=== PATIENT | male | born 1985 | race American Indian/Alaskan Native ===

== ENCOUNTER 2019-02-26 16:51 | Emergency (ER) | payer SELFPAY ==
[2019-02-26] MEDS ORDERED: LIDOCAINE (1%) 10 MG/1 ML VIAL 20 ML MDV INFILTRATI ONE (17:27)
[2019-02-26 17:37] LABS: Basophils # (Auto) 0.1 K/mm3 (0.0-0.1); Basophils % (Auto) 0.8 % (0.0-1.8); Eosinophils % (Auto) 0.5 % (0.0-4.3); Hematocrit 49.1 % (35.5-45.6); Hemoglobin 16.5 gm/dl (11.8-15.2); Lymphocytes # (Auto) 4.5 K/mm3 (1.2-5.4); Lymphocytes % (Auto) 45.5 % (13.4-35.0); Mean Corpuscular HGB Conc 34 % (32-34); Mean Corpuscular Volume 87 fl (84-94); Monocytes # (Auto) 0.4 K/mm3 (0.0-0.8); Monocytes % (Auto) 3.6 % (0.0-7.3); Platelet Count 509 K/mm3 (140-440); Red Blood Count 5.65 M/mm3 (3.65-5.03); Red Cell Distribution Width 13.7 % (13.2-15.2)
[2019-02-26 17:57] LABS: BUN/Creatinine Ratio 10; Blood Urea Nitrogen 6 mg/dL (9-20); Hemolysis Index 19
[2019-02-26 18:11] LABS: Bilirubin,Urine NEG (Negative); Blood,Urine NEG (Negative); Color,Urine Straw (Yellow); Mucus,Urine FEW /HPF; Protein,Urine <15 mg/dL mg/dL (Negative); Urobilinogen,Urine < 2.0 mg/dL (<2.0); WBC,Urine < 1.0 /HPF (0.0-6.0)
[2019-02-26 18:15] LABS: Amphetamine Screen,Urine PRESUMPTIVE NEGATIVE; Benzodiazepines Screen,Urine PRESUMPTIVE NEGATIVE; Cannabinoid Screen,Urine PRESUMPTIVE NEGATIVE; Cocaine Screen,Urine PRESUMPTIVE NEGATIVE; Methadone Screen,Urine PRESUMPTIVE NEGATIVE; Opiate Screen,Urine PRESUMPTIVE NEGATIVE
[2019-02-26] MEDS ORDERED: THIAMINE 100 MG, FOLIC ACID 1 MG, MULTIPLE VITAMIN INJ, ADULT 10 ML in SODIUM CHLORIDE ... IV ONE (19:30)
[2019-02-26] MEDS ORDERED: TETANUS,DIPH,PERTUSS(ACELL) VACCINE 0.5 ML SYRINGE IM ONE (19:37)
--- NOTE | 2019-02-26 19:37 | Emergency Department Report ---
HPI - General Chief Complaint: Psych Time Seen by Provider: 02/26/19 17:15 - HPI HPI: 33-year-old male presents to the emergency department with suicidal ideations and attempt. The patient cut his left wrist with a knife or blade causing a 4-5 inch linear laceration. The patient does admit to alcohol use and appears acutely intoxicated. He apparently has a history of suicidal ideations in the past but unknown if there has ever been an attempt. He does have a history of depression and anxiety. He also has a medical history of HIV. Patient is a t obacco smoker but denies any illicit drug use. Apparently the patient cut himself while at his mother's house but was found in a parking lot. Bleeding is controlled upon arrival. Patient says that his last tetanus shot was about 5 years ago. ED Past Medical Hx - Past Medical History Previous Medical History?: Yes Hx HIV: Yes Additional medical history: Lymphoma. Depression. Anxiety - Social History Smoking Status: Current Every Day Smoker Substance Use Type: Alcohol, Marijuana ED Review of Systems ROS: Stated complaint: SI Other details as noted in HPI Comment: All other systems reviewed and negative Constitutional: denies: chills, fever Eyes: denies: eye pain, vision change ENT: denies: ear pain, throat pain Respiratory: denies: cough, shortness of breath Cardiovascular: denies: chest pain, palpitations Gastrointestinal: denies: abdominal pain, vomiting Genitourinary: denies: dysuria, discharge Musculoskeletal: denies: back pain, arthralgia Skin: other (left wrist laceration). denies: rash Psychiatric: depression, suicidal thoughts. denies: homicidal thoughts Physical Exam - Physical Exam Vital Signs: Vital Signs 02/26/19 17:07 Temperature 98.1 F Pulse Rate 98 H Respiratory 16 Rate Blood Pressure 127/92 O2 Sat by Pulse 98 Oximetry Physical Exam: GENERAL: The patient is well-developed well-nourished. HEENT: Normocephalic. Atraumatic. Patient has moist mucous membranes. EYES: Extraocular motions are intact. NECK: Supple. Trachea is midline. CHEST/LUNGS: Clear to auscultation. There is no respiratory distress noted. HEART/CARDIOVASCULAR: Regular. There is no tachycardia. There is no murmur. ABDOMEN: Abdomen is soft, nontender. Patient has normal bowel sounds. There is no abdominal distention. SKIN: Skin is warm and dry. There is a 4 inch linear laceration to the volar left wrist and distal forearm. It is superficial. There is a gap of about 1.5 cm between the edges. Bleeding is controlled. NEURO: The patient is awake, alert, and oriented but the patient appears acutely intoxicated. The patient is cooperative. The patient has no focal neurologic deficits. Normal speech. Radial pulse +2 over 4 and capillary refill less than 2 seconds to the affected left upper extremity. MUSCULOSKELETAL: There is no tenderness or deformity. There is no limitation range of motion. ED Course Vital Signs 02/26/19 17:07 Temperature 98.1 F Pulse Rate 98 H Respiratory 16 Rate Blood Pressure 127/92 O2 Sat by Pulse 98 Oximetry - Laceration /Wound Repair Left Volar Wrist Wound Location: upper extremity (left volar wrist) Wound Length (cm): 10 Wound's Depth, Shape: superficial, linear Wound Explored: no foreign body removed Anesthesia: 1% Lidocaine Volume Anesthetic (ccs): 5 Wound Repaired With: sutures Suture Size/Type: 5:0, 4:0, proline Number of Sutures: 11 Layer Closure?: No Sterile Dressing Applied?: Yes ED Medical Decision Making - Lab Data Result diagrams: 02/26/19 17:25 02/26/19 17:25 - Medical Decision Making Patient presents with suicidal ideations and a possible attempt. The patient cut his left wrist with a knife or bleed causing a 4 inch laceration. He is neurovascularly intact. The laceration was repaired. Labs are unremarkable except for a blood alcohol level of 0.29. IV fluid resuscitation and banana bag have been ordered. Patient was given some antibiotics for the wound. Tetanus vaccination updated. The patient has been made a 1013 secondary to the suicidal ideations and attempt. He was seen by the psychiatric behavioral psychologist who agrees with this plan. Once the patient's blood alcohol level has come down slightly he will be considered medically cleared for psychiatric placement. - Differential Diagnosis depression, bipolar disorder, schizoaffective, substance abuse Critical Care Time: No Critical care attestation.: If time is entered above; I have spent that time in minutes in the direct care of this critically ill patient, excluding procedure time. ED Disposition Clinical Impression: Suicidal ideations, Suicide attempt by cutting of wrist Depression Qualifiers: Depression Type: other depression Qualified Code(s): F32.89 - Other specified depressive episodes Laceration of left wrist Qualifiers: Encounter type: initial encounter Qualified Code(s): S61.512A - Laceration without foreign body of left wrist, initial encounter Disposition: [id number]/[id number] PSY HOSP/PSY UNIT Is pt being admited?: No Condition: Stable Time of Disposition: 23:28
[2019-02-26] MEDS ORDERED: ZIPRASIDONE MESYLATE 20 MG VIAL IM ONE (20:00)
[2019-02-27] MEDS ORDERED: IBUPROFEN 800 MG TAB PO ONE ×2 (08:10→14:34)
[2019-02-27] MEDS ORDERED: hydrOXYzine HCL 25 MG TAB PO ONE (16:09)
[2019-02-27] MEDS ORDERED: NICOTINE 21 MG/24 HR PATCH TD ONE (17:17)
[2019-02-27] MEDS ORDERED: MELATONIN 5 MG TAB PO PRN (18:41)
[2019-02-27] MEDS ORDERED: ACETAMINOPHEN 500 MG TAB PO ONE (20:04)
[2019-02-28] MEDS ORDERED: ALPRAZolam 1 MG TAB PO ONE (02:26)
[2019-02-28] MEDS ORDERED: IBUPROFEN 600 MG TAB PO ONE ×2 (07:34→07:35)
[2019-02-28] MEDS ORDERED: LORazepam 1 MG TAB ONE (09:50)
[2019-02-28] MEDS ORDERED: LORazepam 1 MG TAB PO ONE (09:50)
--- NOTE | 2019-02-28 13:45 | Consultation ---
History of Present Illness - Reason for Consult Consult date: 02/28/19 Reason for consult: assess and manage mental health - Chief Complaint Chief complaint: Anxiety, Depression, SI w/attempt, flashbacks - History of Present Psychiatric Illness Wilber Jim is a 33 year old male patient who says he's here for "cutting his wrist with a knife. " He says "I was drinking. I was losing my and children." The patient is a/o x3. He is polite, cooperative. His speech is clear and normal tone. He makes good eye contact. He is dressed appropriately. Mr. Jim says he is "depressed and anxious." He states, "I was suicidal, but I'm not sure now." He says he "has these thoughts in his head, and I talk to myself out loud." He says "I see things, flashbacks." He states "they are not hallucinations, but in my head." He says he's "been to longterm and seen a lot of bad stuff. I have flashbacks about it." He says he has "intrusive thoughts." He says he gets "very anxious and was taking xanax 1mg three times a day from primary." He says he "hasn't had it in five or 6 days." The patient is also asking about his "pain medication for his back condition." The patient says he's "shaky" and feels like "withdrawals from his pain med." Mr. Jim says "he can't sleep," because he says "he sees bad stuff happening." He says when he talks out loud it's him "trying to get himself straight." He says "I ask myself, "why you do that. You're so stupid." He denies ever seeing a psychiatrist, but says his primary treats his anxiety and depression. He says he has never attempted suicide in the past. The patient states he has did "heroin, meth and marijuana in the past." He also says he uses alcohol. He says he "doesn't drink every day." He says he smokes cigarets, a pack per day. The patient says he "has no fear of going home. But I gotta fix what's going on." Past Psychiatric History Diagnoses: Depression, Anxiety Past Suicide attempts: Denies Past psych hospitalizations: Denies Medications tried: Zoloft, celexa "did not work" Outpatient treatment: by primary Family Psychiatric History None reported or documented SOCIAL HISTORY Marital Status: Living Arrangements: with Employment Status: Employed Access to guns/weapons: Denies Education: 12th grade History of Abuse: Heroine, cocaine, TCH, alcohol, nicotine Legal History: Been to longterm REVIEW OF SYSTEMS Constitutional: Negative for weight loss ENT: Negative for stridor Respiratory: Negative for cough All other systems reviewed and are negative PAST MEDICAL HISTORY: HIV MSE Appearance: In bed. Appropriate clothing. Good eye contact. Behavior: cooperative, polite Mood: "depressed, anxious" Affect: consisted with mood Thought Process: Goal directed Speech: Normal tone and pace Thought Content Harmfulness: "I was. not sure now" cut wrist Hallucinations: patient denies Delusions: none elicited Consciousness: Alert Cognition/Memory: Good Insight/Judgment: Fair Assessment: Substance-Induced Mood Disorder Major Depressive Disorder, Severe, w/o Psychotic Features PTSD Treatment Plan Continue 1013 Medications -Folic Acid 1mg po daily -CIWA protocol -Nicotine pact 21mg daily -Doxepin 10mg po qhs -Xanax 0.5 po BID -Melatonin 5mg po qhs -Risperidone 0.5mg po BID -Lexapro 5mg po daily -Geodon 20mg IM q4h prn Sitter: Defer to primary Medical: Per Primary Disposition: The patient meets the requirements for acute inpatient psychiatric treatment. Please transfer to acute psych facility once medically stable. The patient explained the medications, benefits and side effects, and treatment plan. He verbalizes understanding and agreement of the treatment plan. Please call me with any questions or concerns. Thank you for this consult. Medications and Allergies Allergies Allergy/AdvReac Type Severity Reaction Status Date / Time No Known Allergies Allergy Unverified 02/26/19 17:11 Home Medications Medication Instructions Recorded Confirmed Last Taken Type Bictegrav/Emtricit/Tenofov Ala 1 tab PO QDAY 02/28/19 02/28/19 Unknown History [Biktarvy 50-200-25 mg (Nf)] Active Meds: Active Medications Melatonin (Melatonin) 10 mg PO QHS PRN PRN Reason: Sleep Last Admin: 02/27/19 20:24 Dose: 10 mg Documented by: Mental Status Exam - Vital signs Last Vital Signs Temp 97.6 F 02/28/19 07:00 Pulse 63 02/28/19 07:00 Resp 18 02/28/19 07:00 BP 139/92 02/28/19 07:00 Pulse Ox 96 02/28/19 07:00 Results Result Diagrams: 02/26/19 17:25 02/26/19 17:25 All other labs normal.
[2019-02-28] MEDS ORDERED: MELATONIN 5 MG TAB PO PRN (13:55)
[2019-02-28] MEDS ORDERED: chlordiazePOXIDE 25 MG CAP PO PRN ×2 (13:59)
[2019-02-28] MEDS ORDERED: ZIPRASIDONE MESYLATE 20 MG VIAL IM PRN (14:12)
[2019-02-28] MEDS ORDERED: risperiDONE 0.25 MG TAB PO SCH (16:00)
[2019-02-28] MEDS ORDERED: FOLIC ACID 1 MG TAB PO SCH (16:00)
[2019-02-28] MEDS ORDERED: ESCITALOPRAM 10 MG TAB PO SCH (16:00)
[2019-02-28] MEDS ORDERED: GABAPENTIN 500 MG/10 ML ORAL LIQD PO ONE (19:41)
[2019-02-28] MEDS ORDERED: NON-FORMULARY EACH (Bictegrav/Emtricit/Tenofov Ala 1 TAB) PO SCH (22:00)
[2019-02-28] MEDS ORDERED: DOXEPIN 10 MG CAP PO SCH (22:00)
[2019-02-28] MEDS ORDERED: ALPRAZolam 0.25 MG TAB PO SCH ×2 (22:00)
[2019-03-01] MEDS ORDERED: IBUPROFEN 600 MG TAB PO ONE (02:37)
[2019-03-01 05:26] VITALS: BP 125/80
[2019-03-01] MEDS ORDERED: NICOTINE 21 MG/24 HR PATCH TD SCH (10:00)
[2019-03-01] MEDS ORDERED: ALPRAZolam 0.25 MG TAB PO SCH (10:00)
== END 2019-03-01 07:07 ==
LOC: EDBD → ED 16:51 → EEVIPCON 16:51 → ED 03-01 07:07
DX: S61.512A Laceration without foreign body of left wrist, initial encounter (principal); F32.9 Major depressive disorder, single episode, unspecified; F43.10 Post-traumatic stress disorder, unspecified; F10.10 Alcohol abuse, uncomplicated; F12.10 Cannabis abuse, uncomplicated; Z21 Asymptomatic human immunodeficiency virus [HIV] infection status; X78.1XXA Intentional self-harm by knife, initial encounter; Y93.89 Activity, other specified; Y92.89 Other specified places as the place of occurrence of the external cause; Y99.8 Other external cause status
CPT/HCPCS: 12004; 36415; 80048; 80307; 81001; 85025; 90471; 90715; 96365; 96368; 96372; 99285; J0690; J3411; J3486; J7030; 80320; G0480

== ENCOUNTER 2020-06-15 14:43 | Emergency (ER) | payer SELFPAY | END 2020-06-15 19:30 | disposition left against medical advice (07) | LOC: ED 14:43 | DX: Z00.8 Encounter for other general examination (principal); Z53.21 Procedure and treatment not carried out due to patient leaving prior to being seen by health care provider ==